=== PATIENT | male | born 1975 | race African-American/Black ===

== ENCOUNTER → 2022-10-27 | Outpatient (CLI) | payer OTHER ==
[2022-10-27 23:26] LABS: Hepatitis A Antibody IgM Nonreactive (Nonreactive); Hepatitis B Core IgM Nonreactive (Nonreactive); Hepatitis B Surface Antigen Nonreactive (Nonreactive); Hepatitis C IgG Antibody Nonreactive (Nonreactive)
[2022-10-27 23:32] LABS: % Iron Saturation 12.26 (15.00-50.00); ALT 26 U/L (10-49); AST 32 U/L (14-35); African American GFR (CKD) 89.5 (60.0-200.0); Albumin 4.1 g/dL (3.8-4.9); Albumin/Globulin Ratio 1.56 (1.60-3.17); Alkaline Phosphatase 57 U/L (41-126); BUN/Creat Ratio 17.77 Ratio (12.00-20.00); Bilirubin, Conjugated <0.20 mg/dL (0.20-0.40); Blood Urea Nitrogen 19.9 mg/dL (9.0-27.0); Calcium 8.6 mg/dL (8.7-10.3); Carbon Dioxide 24.7 mmol/L (20.0-27.5); Chloride 106 mmol/L (96-109); Globulin 2.7 g/dL (1.6-3.3); Glucose 109 mg/dL (70-110); Iron 36 ug/dL (65-175); Non-African American GFR(CKD) 77.3 (60.0-200.0); Potassium 4.3 mmol/L (3.5-5.5); Sodium 141 mmol/L (135-145); Total Bilirubin <0.15 mg/dL (0.30-1.20); Total Iron Binding Capacity 297 ug/dL (228-460); Total Protein 6.8 g/dL (6.2-8.2)
[2022-10-28 00:22] LABS: Ceruloplasmin 19.9 mg/dL (20.0-60.0)
[2022-10-28 06:18] LABS: EBV - VCA IgM <10.0 U/mL (<36.0)
[2022-10-28 11:25] LABS: Smooth Muscle Antibody 17 UNITS (<20)
== END | disposition home or self-care (01) ==
LOC: LABWHC1 15:05
PROVIDERS: ATTEND Internal Medicine
DX: R74.01 Elevation of levels of liver transaminase levels (principal)
CPT/HCPCS: 36415; 80053; 80074; 82103; 82248; 82390; 82525; 82728; 83516; 83540; 83550; 86038; 86645; 86665

== ENCOUNTER → 2023-07-15 | Outpatient (CLI) | payer OTHER ==
--- NOTE | 2023-07-15 10:16 | XR ---
EXAMINATION TYPE: XR foot complete LT DATE OF EXAM: 07/15/2023 9:58 AM CLINICAL INDICATION:Male, 47 years old with history of [id number] PAIN IN LEFT HEEL; PHH COMPARISON: None TECHNIQUE: XR foot complete LT examined in the AP, oblique, and lateral projections. FINDINGS: No evidence of any acute osseous pathology. No evidence of soft tissue swelling. Joints are preserve d. Calcaneal plantar spurring is present. Multifocal degeneration most pronounced at the first digit metatarsophalangeal joint with joint space narrowing and osteophytes. IMPRESSION: 1. No evidence of acute fracture. 2. Minimal calcaneal plantar spurring. 3. 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
== END | disposition home or self-care (01) ==
LOC: RADXRMAIN 09:46
PROVIDERS: ATTEND Internal Medicine
DX: M19.072 Primary osteoarthritis, left ankle and foot (principal); M77.32 Calcaneal spur, left foot

== ENCOUNTER → 2023-09-19 | Outpatient (CLI) | payer OTHER ==
--- NOTE | 2023-09-19 10:53 | XR ---
EXAMINATION TYPE: XR chest 2V DATE OF EXAM: 09/19/2023 COMPARISON: None HISTORY: 47-year-old male cough TECHNIQUE: Frontal and lateral views FINDINGS: The cardiomediastinal silhouette, aorta, and pulmonary vasculature are within normal limits. Lungs an d pleural spaces are clear. IMPRESSION: No acute cardiopulmonary process.
--- NOTE | 2023-09-19 10:58 | XR ---
EXAMINATION TYPE: XR shoulder complete BILAT DATE OF EXAM: 09/19/2023 COMPARISON: NONE HISTORY: 47-year-old male M2 5.511, bilateral shoulder pain after heavy lifting TECHNIQUE: 3 views each side FINDINGS: Mild degenerative change on both sides but with prominent marginal spurring on the right and mild on the left. Subacromial space is preserved bilaterally. No tendinous or bursal calcifications. No acute fracture, subluxation, dislocation. IMPRESSION: Mild bilateral AC joint OA but with prominent spurring on the right and to a lesser extent on the lef t. The inferior spurring may contribute to subacromial impingement. Otherwise, no acute osseous abnor mality seen.
== END | disposition home or self-care (01) ==
LOC: RADXRMAIN 10:30
PROVIDERS: ATTEND Internal Medicine
DX: M19.011 Primary osteoarthritis, right shoulder (principal); M19.012 Primary osteoarthritis, left shoulder; F44.89 Other dissociative and conversion disorders; R05.9 Cough, unspecified
CPT/HCPCS: 71046

== ENCOUNTER → 2024-02-21 | Outpatient (CLI) | payer BC ==
--- NOTE | 2024-02-22 05:57 | MR ---
EXAMINATION TYPE: MR shoulder LT wo con DATE OF EXAM: 02/21/2024 COMPARISON: Outside bilateral shoulder x-ray February 08, 2024. HISTORY: Left shoulder pain for about 7 months. TECHNIQUE: Multiplanar, multisequence imaging of the right shoulder is performed without contrast. FINDINGS: Rotator Cuff: Intact supraspinatus and infraspinatus tendons. Intact subscapularis tendon. Rotator cu ff muscle bulk is preserved. 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 Moderate narrowing and spurring is present. Mild to m oderate capsular hypertrophy. Glenohumeral Joint: Small sized joint effusion. No significant spurring. Labrum: The labrum appears grossly intact given limitation of non-arthrogram study. Biceps Tendon: The long head of biceps is in normal location within bicipital groove. Bone marrow signal: No focal abnormal marrow signal is appreciated. Other: No additional significant abnormality is appreciated. IMPRESSION: 1. No rotator cuff or labral tear is seen. 2. 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
== END | disposition home or self-care (01) ==
LOC: RADMRIMAIN 19:01
PROVIDERS: ATTEND Orthopaedic Surgery
DX: M19.012 Primary osteoarthritis, left shoulder (principal)

== ENCOUNTER → 2024-03-12 | Day surgery (SDC) | payer BC ==
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
[~2024-03-12] MED LIST: PROPOFOL 10 MG/ML 20 ML VIAL IV ONE; ceFAZolin 3 GM in SODIUM CHLORIDE 0.9% 100 ML IVPB PRN; fentaNYL (PF) 50 MCG/ML 2 ML AMP ONE
[2024-03-12] MEDS: DEXAMETHASONE SOD PHOSPHATE 4 MG/ML 1 ML VIAL IV ONE (10:23)
[2024-03-12] MEDS: ONDANSETRON 4 MG/2 ML VIAL IVP ONE (10:23)
[2024-03-12] MEDS: LACTATED RINGERS 1,000 ML IV SCH (10:23)
[2024-03-12] MEDS: IV FLUID CONTINUATION 1,000 ML IV ONE (10:29)
[2024-03-12 10:50] VITALS: TEMP 98
--- NOTE | 2024-03-12 11:06 | P.OP ---
Date of Procedure: 03/12/24 Preoperative Diagnosis: Left shoulder adhesive capsulitis Postoperative Diagnosis: Same Procedure(s) Performed: Manipulation under anesthesia left shoulder/left shoulder subacromial cortisone injection Anesthesia: MAC Surgeon: Shivam Kingsley Estimated Blood Loss (ml): 0 Pathology: none sent Condition: stable Disposition: PACU Indications for Procedure: The patient is a 48-year-old male who presents with progressive left shoulder pain and stiffness secondary to adhesive capsulitis despite adequate rehabilitation. A discussion of the risks and benefits of manipulation under anesthesia with subacromial cortisone injection was made with the patient. He opted to proceed. Risks of the procedure to include fracture, tendon rupture, possible recurrence of stiffness and need for subsequent procedures was discussed. Informed consent was obtained. Operative Findings: As below Description of Procedure: The patient was brought to the recovery room, and after induction of IV sedation and monitored anesthesia, I gently manipulated the left shoulder. First with the arm at the side obtain full external rotation. Moderate adhesions were encountered. I then obtain full forward elevation. Again moderate adhesions were encountered. I felt there was adequate release at this point. The posterior shoulder was then prepped with ChloraPrep. 40 mg of Depo-Medrol along with 5 cc of quarter percent plain Marcaine was injected into the subacromial space. The patient was then monitored until fully awake. No complications were incurred. There was no blood loss.
[2024-03-12] MEDS: HYDROmorphone 0.5 MG/0.5 ML SYRINGE IVP PRN (11:14)
[2024-03-12] MEDS: KETOROLAC 15 MG/ML 1 ML VIAL IVP STA (11:23)
[2024-03-12] MEDS: HYDROcodone/APAP 7.5-325MG 1 EACH TAB PO ONE (12:26)
[2024-03-12 12:56] VITALS: BP 153/89; PULSE 51; RESP 16
== END | disposition home health service (06) ==
LOC: OR 09:48
PROVIDERS: ATTEND Orthopaedic Surgery
DX: M75.02 Adhesive capsulitis of left shoulder (principal); I10 Essential (primary) hypertension; K21.9 Gastro-esophageal reflux disease without esophagitis; F43.10 Post-traumatic stress disorder, unspecified; Z87.891 Personal history of nicotine dependence; Z79.1 Long term (current) use of non-steroidal anti-inflammatories (NSAID); Z79.899 Other long term (current) drug therapy
CPT/HCPCS: 23700; J1100; J2405; J3010; J1885; J2704; J1170

== ENCOUNTER → 2024-05-29 | Outpatient (CLI) | payer BC ==
[2024-05-29 18:13] LABS: Basophils # (A) 0.02 X 10*3/uL (0.00-0.10); Basophils % (A) 0.3 %; Eosinophils # (A) 0.16 X 10*3/uL (0.04-0.35); Eosinophils % (A) 2.1 %; HGB 12.6 g/dL (13.0-17.0); Lymphocytes # (A) 2.18 X 10*3/uL (0.90-5.00); MCH 28.8 pg (27.0-32.0); MCHC 33.2 g/dL (32.0-37.0); Mean Platelet Volume 11.4 FL (9.5-12.2); NRBC Per 100 WBC 0 X 10*3/uL (0.00-0.01); Neutrophils # (A) 4.53 X 10*3/uL (1.80-7.70); Neutrophils % (A) 60.2 %; Platelet Count 226 X 10*3/uL (140-440); RBC 4.37 X 10*6/uL (4.40-5.60); RDW 13.2 % (11.5-14.5); WBC 7.52 X 10*3/uL (4.50-10.00)
[2024-05-29 20:00] LABS: PSA Annual Screen 0.744 ng/mL (0.000-4.000)
[2024-05-29 20:01] LABS: ALT 15 U/L (10-49); AST 26 U/L (14-35); Albumin 4.3 g/dL (3.8-4.9); Albumin/Globulin Ratio 1.72 Ratio (1.60-3.17); Alkaline Phosphatase 69 U/L (41-126); BUN/Creat Ratio 18.27 Ratio (12.00-20.00); Blood Urea Nitrogen 20.1 mg/dL (9.0-27.0); Carbon Dioxide 26.8 mmol/L (21.6-31.8); Chloride 102 mmol/L (96-109); Chol/HDL Ratio 5.55 Ratio; Globulin 2.5 g/dL (1.6-3.3); Glucose 111 mg/dL (70-110); LDL Cholesterol,Calculated 129.4 mg/dL (0.0-131.0); Magnesium 1.6 mg/dL (1.5-2.4); Potassium 4.4 mmol/L (3.5-5.5); Sodium 140 mmol/L (135-145); Total Bilirubin <0.2 mg/dL (0.3-1.2); Total Protein 6.8 g/dL (6.2-8.2)
== END | disposition home or self-care (01) ==
LOC: LABWHC1 12:46
PROVIDERS: ATTEND Internal Medicine
DX: Z12.5 Encounter for screening for malignant neoplasm of prostate (principal); I10 Essential (primary) hypertension; R73.9 Hyperglycemia, unspecified
CPT/HCPCS: 36415; 80053; 80061; 83036; 83735; 84443; 85025

== ENCOUNTER → 2024-06-19 | Outpatient (CLI) | payer BC ==
--- NOTE | 2024-06-19 13:14 | CA ---
Stress Echo Report Davina Suazo Age: 48 Gender: M : 1975 Exam Date: 06/19/2024 10:40 Exam Location: [facility] Ht (in): 73 Wt (lb): 285 Ordering Physician: Jose Levy DO Referring Physician: Jose Levy DO Radio Repairman: FRANCA Technologist Procedure CPT: Indication: I10 HTN I45.10 UNSPECIFIED RIGHT BUNDLE-BRANCH BLO ICD-9 Codes: Rhythm: Patient History: Palpitations, hypertension and hyperlipidemia. Cardiac Medications: Medications in past 24 hours: Contrast: Stress Results Protocol: Braxton Total dose(mL): Exercise Duration (min:sec): 10:[address] Depression (mm): Angina Score: Harris Score: METS: 12.1 Resting HR: 56 Resting BP: 137 / 77 Peak HR: 156 Peak BP: 209 / 79 Max Predicted HR: 171 91 % Max Predicted HR Target HR: 145 Double Product: 60124 Stress Summary: BP Response: Reason for Termination: Reached target heart rate or work-load Cardiac Symptoms: Dyspnea ECG Analysis Resting ECG: Stress ECG: Arrhythmia: Echo Analysis Resting Echo: Peak Echo Analysis: MEASUREMENTS (Male/Female) Normal Values CONCLUSIONS Excellent exercise tolerance The patient exercised on the treadmill according to Braxton protocol for total of 10 minutes and achieved 12 METS Excellent augmentation in the blood pressure and heart rate in response to exercise and the patient achieved 91% of maximum predicted heart rate Normal electrocardiogram and echocardiogram in response to exercise Dr. Luis Carlos Pelayo MD (Electronically Signed) Final Date: 19 June 2024 13:13
== END | disposition home or self-care (01) ==
LOC: RADNMMAIN 10:02
PROVIDERS: ATTEND Internal Medicine
DX: I10 Essential (primary) hypertension (principal); I45.10 Unspecified right bundle-branch block; E78.5 Hyperlipidemia, unspecified
CPT/HCPCS: 93351